=== PATIENT | female | born 1985 | race Caucasian/White ===

== ENCOUNTER 2017-06-15 20:43 | Emergency (ER) | payer BC ==
[~2017-06-15] VITALS: Ht 154.9 cm; Wt 63.5 kg
--- NOTE | 2017-06-15 21:32 | NUR ---
Patient discharged to home in stable conditon. Written and verbal after care instructions given. Patient verbalizes understanding of instructions.
== END 2017-06-15 21:33 | disposition home or self-care (01) ==
LOC: ER 20:44
DX: F41.9 Anxiety disorder, unspecified (principal)
CPT/HCPCS: 93005; A4663

== ENCOUNTER 2018-03-23 20:18 | Emergency (ER) | payer BC ==
[~2018-03-23] VITALS: Ht 154.9 cm; Wt 64.4 kg
[2018-03-23] MEDS ORDERED: NORE1TAB23 PO (20:33)
[2018-03-23] MEDS ORDERED: LEXAPRO (20:33)
[2018-03-23] MEDS ORDERED: ALPR0.255 PO (20:33)
--- NOTE | 2018-03-23 20:57 | NUR ---
Dr. Lewis at bedside for MSE.
--- NOTE | 2018-03-23 21:10 | NUR ---
Patient discharged to home in stable conditon. Written and verbal after care instructions given. Patient verbalizes understanding of instructions. Pt ambulated out of ER with steady gait, no acute signs of distress, VSS, all belongings taken.
[2018-03-23 21:12] VITALS: BP 111/100
== END 2018-03-23 21:13 | disposition home or self-care (01) ==
LOC: ER 20:20
DX: F41.0 Panic disorder [episodic paroxysmal anxiety] (principal); F41.9 Anxiety disorder, unspecified
CPT/HCPCS: A4663

== ENCOUNTER 2019-03-06 20:32 | Emergency (ER) | payer BC ==
[~2019-03-06] VITALS: Ht 157.5 cm; Wt 65.8 kg
[~2019-03-06 20:32] MED LIST: ALPR0.255 PO; LEXAPRO; NORE1TAB23 PO
--- NOTE | 2019-03-06 20:55 | NUR ---
Patient is AAOx4, speaking in complete sentences, speech is clear. Able to follow /comprehend directions. Gait is stable. No cardiovascular distress noted. Rate/rhythm regular. No CP. No respiratory distress noted. Respirations even , unlabored, symmetrical chest rise. No adventitious sounds noted. Chief complaint: ABD pain x 2 months. Miscarriage in December. Patient states [id number]. Patient states no return of menses since the event. 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 Denies N/V/D/Fever/Chills. No recent travel. No pertinent medical history/NKDA. No ETOH/recreational drug use. LBM- yesterday. Continent of bowel and bladder function. Bowel sounds present in all four quadrants. No distention noted. Soft to the touch. Patient in bed, call light is within reach. Side rails up, bed in lowest position. Will continue to monitor patient with frequent check ins and direct observation as indicated. Patient under ER MD evaluation at this time. Orders pending.
[2019-03-06 21:30] LABS: BASOPHILS % (AUTO) 0.4 % (0.0-2.0); EOSINOPHILS # (AUTO) 0.1 K/uL (0.0-0.7); EOSINOPHILS % (AUTO) 1.5 % (0.0-7.0); HEMATOCRIT 33.1 % (31.2-41.9); HEMOGLOBIN 11.4 g/dL (10.9-14.3); LYMPHOCYTES # (AUTO) 1.9 K/uL (20.0-40.0); LYMPHOCYTES % (AUTO) 24.4 % (20.5-51.5); MEAN CORPUSCULAR HEMOGLOBIN 30.4 uug (24.7-32.8); MEAN CORPUSCULAR HGB CONC 35 g/dL (32.3-35.6); MEAN CORPUSCULAR VOLUME 88.3 fL (75.5-95.3); MONOCYTES # (AUTO) 0.5 K/uL (2.0-10.0); NEUTROPHILS # (AUTO) 5.3 K/uL (1.8-8.9); NEUTROPHILS % (AUTO) 67.7 % (38.5-71.5); PLATELET COUNT (AUTO) 144 K/uL (179-408); RED BLOOD CELL COUNT(AUTO) 3.75 MIL/uL (3.63-4.92); WHITE BLOOD COUNT (AUTO) 7.8 K/uL (3.8-11.8)
[2019-03-06 21:42] LABS: CREATININE 0.8 mg/dL (0.6-1.3); POTASSIUM 3.7 mmol/L (3.5-5.1)
[2019-03-06 21:55] LABS: BILIRUBIN,DIRECT 0.1 mg/dL (0.0-0.2); BILIRUBIN,TOTAL 0.3 mg/dL (0.2-1.0); TOTAL PROTEIN, SERUM 6.4 g/dL (6.4-8.2)
--- NOTE | 2019-03-06 22:01 | NUR ---
Patient discharged to home in stable conditon. Written and verbal after care instructions given. Patient verbalizes understanding of instructions. Ambulated from ER with stable gait. All belongings with patient. patient told to follow up with lead electrical controls engineer as she is approx 15+ weeks .
[2019-03-06 22:05] VITALS: BP 111/65
== END 2019-03-06 22:17 | disposition home or self-care (01) ==
LOC: ER 20:32
DX: O26.891 Other specified pregnancy related conditions, first trimester (principal); R10.9 Unspecified abdominal pain; Z79.899 Other long term (current) drug therapy; Z3A.14 14 weeks gestation of pregnancy
CPT/HCPCS: 36415; 76856; 85025; 85730; 86850; 86900; 86901; A4663